=== PATIENT | female | born 1955 | race Caucasian/White ===

== ENCOUNTER 2023-01-08 14:34 | Outpatient (AMB) | payer OTHER, SELFPAY ==
[2023-01-08 14:37] VITALS: BP 110/62; PULSE 77; O2SAT 95; BMI 32.5
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
== END 2023-01-08 15:24 | disposition home or self-care (01) ==
PROVIDERS: PCP Internal Medicine; Visit Provider Internal Medicine
DX: R06.09 Other forms of dyspnea (principal); G47.33 Obstructive sleep apnea (adult) (pediatric); E66.9 Obesity, unspecified; M25.69 Stiffness of other specified joint, not elsewhere classified; M06.9 Rheumatoid arthritis, unspecified
CPT/HCPCS: 99204

== ENCOUNTER → 2023-01-08 14:34 | Outpatient (BNVA) | payer OTHER, SELFPAY | PROVIDERS: PCP Internal Medicine; Visit Provider Internal Medicine ==

== ENCOUNTER 2023-03-15 14:11 | Outpatient (AMB) | payer OTHER, SELFPAY ==
[2023-03-15 15:18] VITALS: BP 110/60; PULSE 75; O2SAT 97
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
== END 2023-03-15 15:46 | disposition home or self-care (01) ==
PROVIDERS: PCP Internal Medicine; Visit Provider Internal Medicine
DX: R06.09 Other forms of dyspnea (principal); G47.33 Obstructive sleep apnea (adult) (pediatric)
CPT/HCPCS: 94060; 94727; 94729; 99213

== ENCOUNTER 2023-03-15 14:34 | Outpatient (REF) | payer MEDICARE, SELFPAY ==
--- NOTE | 2023-03-15 15:16 | PFT_ITS ---
INDICATION: Dyspnea. SPIROMETRY: FEV1 to FVC of 84% with an FEV1 of 3.1 L, which is 95% predicted. FVC of 3.69 L, which is 36% predicted. No significant response to bronchodilator is noted. Maximum voluntary ventilation 91% predicted. LUNG VOLUMES: Total lung capacity 96% predicted with an expiratory reserve volume of 25% predicted. DIFFUSION CAPACITY: DLCO of 65% predicted. It does not correct to normal when correcting for the alveolar volume. COMPARISONS: None. INTERPRETATION: No obstructive ventilatory defects. No significant response to bronchodilator is noted. Normal maximum voluntary ventilation. The patient also has normal lung volumes except for a decrease in the expiratory reserve volume secondary to an elevated BMI. The patient, however, does have an isolated moderate diffusion impairment. Again, it did not correct when correcting for the alveolar volume. Need to consider underlying pulmonary vascular conditions, occult interstitial lung conditions, and should also correct for hemoglobin. Clinical correlation warranted. MD ANGEL Phillips/[facility] / [phone]
== END 2023-03-15 14:35 | disposition home or self-care (01) ==
LOC: HO.RESP 14:34
PROVIDERS: PCP Internal Medicine; Visit Provider Internal Medicine
DX: R06.09 Other forms of dyspnea (principal); G47.33 Obstructive sleep apnea (adult) (pediatric)
CPT/HCPCS: 94010; 94727; 94729

== ENCOUNTER 2023-06-19 12:39 | Outpatient (AMB) | payer MEDICARE, SELFPAY ==
[2023-06-19 13:14] VITALS: BP 126/70; PULSE 53; O2SAT 98; BMI 32.2
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
== END 2023-06-19 13:50 | disposition home or self-care (01) ==
PROVIDERS: PCP Internal Medicine; Visit Provider Internal Medicine
DX: R06.09 Other forms of dyspnea (principal); E66.9 Obesity, unspecified; G47.33 Obstructive sleep apnea (adult) (pediatric)
CPT/HCPCS: 99213

== ENCOUNTER → 2023-06-19 12:39 | Outpatient (BNVA) | payer MEDICARE, SELFPAY | PROVIDERS: PCP Internal Medicine; Visit Provider Internal Medicine | DX: G47.33 Obstructive sleep apnea (adult) (pediatric) (principal); R06.09 Other forms of dyspnea; E66.9 Obesity, unspecified; Z68.32 Body mass index [BMI] 32.0-32.9, adult | CPT/HCPCS: 99212 ==